=== PATIENT | female | born 1940 | race Caucasian/White ===

== ENCOUNTER 2022-02-16 13:44 | Emergency (ER) | payer MEDICARE, OTHER ==
[2022-02-16] MEDS ORDERED: HYDROmorphone 1 MG/ML CARPUJECT IVP STA ×2 (13:56→15:42)
[2022-02-16] MEDS ORDERED: ceFAZolin 1 GM VIAL IVP STA (13:57)
[2022-02-16] MEDS ORDERED: KETAMINE 500 MG/10 ML VIAL IVP STA (13:57)
[2022-02-16] MEDS ORDERED: TETANUS/DIPHTHERIA/PERTUSSIS 0.5 ML SYRINGE IM ONE (13:57)
[2022-02-16] MEDS ORDERED: PROPOFOL 200 MG/20 ML VIAL IVP STA ×2 (14:02→14:57)
[2022-02-16 14:14] LABS: BASOPHILS % (AUTO) 0.6 %; EOSINOPHILS # (AUTO) 0.2 10^3/uL (0.0-0.7); EOSINOPHILS % (AUTO) 3.6 %; HCT - HEMATOCRIT 40.5 % (37.0-47.0); HGB - HEMOGLOBIN 13.8 g/dL (12.0-16.0); LYMPHOCYTES # (AUTO) 1.9 10^3/uL (1.5-3.5); MEAN CORPUSCULAR HEMOGLOBIN 31.1 pg (27.0-31.0); MEAN CORPUSCULAR HGB CONC 34.1 g/dL (32.0-36.0); MEAN CORPUSCULAR VOLUME 91.2 fL (81.0-99.0); MEAN PLATELET VOLUME 8.8 fL (7.9-10.8); MONOCYTES # (AUTO) 0.5 10^3/uL (0.0-1.0); MONOCYTES % (AUTO) 8.1 %; NEUTROPHILS # (AUTO) 3.5 10^3/uL (1.5-6.6); NEUTROPHILS % (AUTO) 56.5 %; PLT - PLATELET COUNT 200 10^3/uL (130-450); RED BLOOD COUNT 4.44 10^6/uL (4.20-5.40); RED CELL DISTRIBUTION WIDTH 13.2 % (12.0-15.0); WHITE BLOOD COUNT 6.2 x10^3/uL (4.8-10.8)
[2022-02-16 14:24] LABS: ALBUMIN 3.9 g/dL (3.2-5.5); ALBUMIN/GLOBULIN RATIO 1.4 (1.0-2.2); BILIRUBIN,TOTAL 0.8 mg/dL (0.2-1.0); CALCIUM 9.5 mg/dL (8.5-10.3); CREATININE 0.7 mg/dL (0.4-1.0); TOTAL PROTEIN 6.6 g/dL (6.7-8.2)
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
--- NOTE | 2022-02-16 14:43 | XRAY Report ---
PROCEDURE: Wrist 2 View LT INDICATIONS: OPEN FRACTURE TECHNIQUE: 2 views of the wrist were acquired. COMPARISON: FINDINGS: Bones: Distal ulnar and radial fractures with the proximal broken fragment projecting through the ski n dorsally. There is moderate degree of displacement, angulation and approximately 3 cm of overlappin g apposition. Ulnar styloid fracture. Soft tissues: No suspicious soft tissue calcifications. IMPRESSION: Displaced, angulated, and overlapping distal radial and ulnar open fractures as above. Reviewed by: Jeffry Hurd MD on 02/16/2022 2:42 PM PDT Approved by: Jeffry Hurd MD on 02/16/2022 2:42 PM PDT Station ID: [id number]
--- NOTE | 2022-02-16 15:01 | XRAY Report ---
PROCEDURE: Wrist 2 View LT INDICATIONS: postreduction TECHNIQUE: 2 views of the wrist were acquired. COMPARISON: Earlier study from the same day FINDINGS: Bones: There is interval reduction of earlier noted comminuted and displaced distal radial and ulnar shaft fractures with improved left wrist alignment. Volar displacement and overlapping of fracture si rufino is again seen. There is interval cast placement over left wrist. Scaphoid view: Definite is grossly intact. Soft tissues: No suspicious soft tissue calcifications. IMPRESSION: Interval reduction of earlier noted comminuted and displaced distal radial and ulnar shaft fractures with improved wrist alignment. Interval cast placement. No new fracture or dislocation. Reviewed by: Yusuf Fonseca MD on 02/16/2022 3:00 PM PDT Approved by: Yusuf Fonseca MD on 02/16/2022 3:00 PM PDT Station ID: [id number]
[2022-02-16 15:12] LABS: PT - PROTHROMBIN TIME 11.2 secs (9.9-12.6)
[2022-02-16 15:44] VITALS: BP 150/80
--- NOTE | 2022-02-16 16:19 | XRAY Report ---
PROCEDURE: Wrist 2 View LT INDICATIONS: post-reduction 2nd attempt TECHNIQUE: 3 views of the wrist were acquired. COMPARISON: Same-day radiograph FINDINGS: Bones: Comminuted mildly displaced intra-articular fractures of the distal radius and ulna, with ulna r-sided angulation and mild persistent displacement. Overall alignment is improved, with decreased ov erlap. Soft tissues: Cast material in place. IMPRESSION: Improved anatomic alignment of comminuted intra-articular distal radius and ulnar fractures. Mild per sistent displacement and ulnar-sided angulation. Reviewed by: Jeffry Hurd MD on 02/16/2022 4:17 PM PDT Approved by: Jeffry Hurd MD on 02/16/2022 4:17 PM PDT Station ID: [id number]
== END 2022-02-16 16:33 | disposition short-term general hospital (02) ==
LOC: ED 13:44
DX: S52.502B Unspecified fracture of the lower end of left radius, initial encounter for open fracture type I or II (principal); S52.602B Unspecified fracture of lower end of left ulna, initial encounter for open fracture type I or II; V19.9XXA Pedal cyclist (driver) (passenger) injured in unspecified traffic accident, initial encounter; Y93.55 Activity, bike riding
CPT/HCPCS: 25565; 36415; 73100; 80053; 85025; 85610; 90471; 90715; 93005; 96374; 96375; 99152; 99285; 99291; J1170; 94770